=== PATIENT | male | born 2000 | race Caucasian/White ===

== ENCOUNTER 2018-02-13 16:46 | Emergency (ER) | payer BC ==
[2018-02-13 17:03] VITALS: BP 131/63
--- NOTE | 2018-02-13 17:31 | UC ---
Throat Pain/Nasal Maximo HPI - HPI Summary HPI Summary: Pt c/o PÉREZ, ST nasal congestion X 10 days. - History of Current Complaint Hx Obtained From: Patient Onset/Duration: Gradual Onset, Lasting Days - 10 days. Severity: Mild Pain Intensity: 4 Associated Signs & Symptoms: Positive: Sinus Discomfort Related History: Seasonal Allergies - Epiglottits Risk Factors Epiglottis Risk Factors: Negative <Emiliana Brooks NP - Last Filed: 02/13/18 17:52> <Nayeli Gasca - Last Filed: 02/13/18 19:35> - History of Current Complaint Stated Complaint: ST,PÉREZ Time Seen by Provider: 02/13/18 16:54 - Allergies/Home Medications Allergies/Adverse Reactions: Allergies Allergy/AdvReac Type Severity Reaction Status Date / Time No Known Allergies Allergy Verified 02/13/18 17:03 Home Medications: Home Medications Cetirizine HCl [Zyrtec] 10 mg PO DAILY 02/13/18 [History Confirmed 02/13/18] Ibuprofen TAB* [Motrin TAB* 400 MG] 400 mg PO Q6H PRN 02/13/18 [History Confirmed 02/13/18] PMH/Surg Hx/FS Hx/Imm Hx Previously Healthy: Yes - Surgical History Surgical History: None - Family History Known Family History: Positive: Cardiac Disease - Social History Occupation: Employed Full-time Lives: With Family Alcohol Use: None Substance Use Type: None Smoking Status (MU): Never Smoked Tobacco Type: Cigarettes Have You Smoked in the Last Year: No - Immunization History Vaccination Up to Date: Yes <Emiliana Brooks NP - Last Filed: 02/13/18 17:52> Review of Systems Constitutional: Negative Skin: Negative Eyes: Negative ENT: Sore Throat, Sinus Congestion, Sinus Pain/Tenderness Respiratory: Negative Cardiovascular: Negative Gastrointestinal: Negative Genitourinary: Negative Motor: Negative Neurovascular: Negative Musculoskeletal: Negative Neurological: Headache Psychological: Negative Is Patient Immunocompromised?: No All Other Systems Reviewed And Are Negative: Yes <Emiliana Brooks NP - Last Filed: 02/13/18 17:52> Physical Exam Triage Information Reviewed: Yes Appearance: Well-Appearing Vital Signs: Initial Vital Signs Temp 98.9 F 02/13/18 16:57 Pulse 63 02/13/18 16:57 Resp 16 02/13/18 16:57 BP 131/63 02/13/18 16:57 Pulse Ox 99 02/13/18 16:57 Vital Signs Reviewed: Yes Eye Exam: Normal ENT Exam: Other ENT: Positive: Pharyngeal erythema, Sinus tenderness Dental Exam: Normal Neck exam: Normal Respiratory Exam: Normal Cardiovascular Exam: Normal Musculoskeletal Exam: Normal Neurological Exam: Normal Psychological Exam: Normal Skin Exam: Normal <Emiliana Brooks NP - Last Filed: 02/13/18 17:52> Vital Signs: Initial Vital Signs Temp 98.9 F 02/13/18 16:57 Pulse 63 02/13/18 16:57 Resp 16 02/13/18 16:57 BP 131/63 02/13/18 16:57 Pulse Ox 99 02/13/18 16:57 <Nayeli Gasca Last Filed: 02/13/18 19:35> Throat Pain/Nasal Course/Dx - Differential Dx/Diagnosis Differential Diagnosis/HQI/PQRI: Sinusitis, URI Provider Diagnoses: sinusitis <Emiliana Brooks NP - Last Filed: 02/13/18 17:52> Discharge - Sign-Out/Discharge Documenting (check all that apply): Discharge/Admit/Transfer - Billing Disposition and Condition Condition: STABLE Disposition: Home <Emiliana Brooks NP Filed: 02/13/18 17:52> - Billing Disposition and Condition Condition: STABLE Disposition: Home <Nayeli Gasca - Last Filed: 02/13/18 19:35> - Discharge Plan Condition: Stable Disposition: HOME Prescriptions: Amoxicillin/Clavulanate TAB* [Augmentin TAB 875*] 875 mg PO Q12H #20 tab Patient Education Materials: Sinusitis (ED) Referrals: Surjit Sorenson MD [Primary Care Provider] - Attestation Statement User Type: Provider - I was available for consult. This patient was seen by the [facility]. The patient was not presented to, seen by, or examined by me. -Veronica <Nayeli Gasca Last Filed: 02/13/18 19:35> Addendum entered and electronically signed by Emiliana Brooks NP, NP 17:53: UC Addendum Addendum: UC rapid strep: negative
== END 2018-02-13 17:34 | disposition home or self-care (01) ==
LOC: UCCORT 16:46
DX: J32.9 Chronic sinusitis, unspecified (principal)
CPT/HCPCS: 87651; 99212; G0463